=== PATIENT | female | born 1995 | race African-American/Black ===

== ENCOUNTER 2020-03-16 03:11 | Emergency (ER) | payer SELFPAY ==
[2020-03-16] MEDS ORDERED: HYDROMORPHONE HCL INJ/PF 2 MG/ML AMPULE IV ONE ×2 (04:04→05:24)
[2020-03-16] MEDS ORDERED: ONDANSETRON HCL INJ/PF 4 MG/2 ML SDV IV ONE (04:04)
[2020-03-16] MEDS ORDERED: ETOMIDATE INJ/PF 20 MG/10 ML SDV IV ONE ×2 (04:18→05:56)
--- NOTE | 2020-03-16 04:18 | ER Document Report ---
ED General - General Chief Complaint: Arm Pain Stated Complaint: LEFT SHOULDER PAIN Time Seen by Provider: 03/16/20 03:58 - HPI Context: This is a 24-year-old female presenting via EMS after falling at home and sustaining a injury to her left shoulder. Patient states that approximately 1 hour prior to arrival, patient woke up and got out of bed to use the bathroom. Patient states there were no lights on and she accidentally tripped and fell and felt immediate pain in her left shoulder. Patient states she had inability to move her left upper extremity due to pain. Patient rates the pain as a 5 out of 5 and localizes it to the left shoulder. Patient states that the pain is sharp in character. Patient states there are no alleviating symptoms and movement or touching the shoulder exacerbates her pain. Patient states that she has no prior history of a your shoulder was dislocated today. This was reduced. Please wear the sling as needed for comfort. Follow-up with orthopedic surgery if you have recurrent shoulder dislocations. You should continue to take anti- inflammatories such as ibuprofen 600 mg every 6 hours for pain. Continue to apply ice to the area is much your able. Please return immediately if you develop weakness, numbness, spreading redness from the area, or any other symptoms that are concerning to you.. Patient denies recent fever, chills, shortness of breath, history of COVID-19 infection, known exposure to persons positive for COVID-19 or exposure to persons under investigation for COVID-19. Patient denies numbness, tingling in her left digits. Associated symptoms: Other - See HPI Exacerbated by: Other - See HPI Relieved by: Other - See HPI Similar symptoms previously: No - Related Data Allergies/Adverse Reactions: No Known Allergies Allergy (Verified 03/16/20 04:25) Past Medical History - General Information source: Patient - Social History Smoking Status: Never Smoker Drug Abuse: None Family History: Reviewed & Not Pertinent Patient has suicidal ideation: No Patient has homicidal ideation: No Review of Systems - Review of Systems Constitutional: No symptoms reported EENT: No symptoms reported Cardiovascular: No symptoms reported Respiratory: No symptoms reported Gastrointestinal: No symptoms reported Genitourinary: No symptoms reported Female Genitourinary: No symptoms reported Musculoskeletal: Joint pain, Deformity Skin: No symptoms reported Hematologic/Lymphatic: No symptoms reported Neurological/Psychological: No symptoms reported -: Yes All other systems reviewed and negative Physical Exam - Vital signs Vitals: Temp Pulse Resp BP Pulse Ox 97.9 F 75 18 169/82 H 100 03/16/20 03:28 03/16/20 03:28 03/16/20 03:28 03/16/20 03:28 03/16/20 03:28 - Notes Notes: CONSTITUTIONAL [Vital signs reviewed, Patient appears uncomfortable, Alert and oriented X 3, ] HEAD [Atraumatic, Normocephalic.] EYES [Eyes are normal to inspection, No discharge from eyes, Extraocular muscles intact, Sclera are normal, Conjunctiva are normal.] ENT [External Ears normal to inspection, Nose examination normal, Posterior pharynx normal, Mouth normal to inspection.] NECK [Normal ROM, No jugular venous distention, No meningeal signs, no carotid bruit.] RESPIRATORY CHEST [Chest is nontender, Breath sounds normal, No respiratory distress.] CARDIOVASCULAR [RRR, No murmurs, Normal S1 S2, No rub, No gallop.] ABDOMEN [Abdomen is nontender, No pulsatile masses, No other masses, Bowel sounds normal, No distension, No peritoneal signs, No hernias.] BACK [There is no CVA Tenderness, There is no tenderness to palpation, Normal inspection.] UPPER EXTREMITY Left upper extremity exam is significant for anterior fullness of the deltoid on the left side. Patient's left upper extremity is slightly flexed at the elbow. Patient has cap refill less than 2 seconds in all 5 digits. Patient has intact active range of motion in all 5 digits. Sensation is grossly intact in all 5 digits. There do not appear to be any other abnormalities present on exam. LOWER EXTREMITY [Inspection normal, No cyanosis, No clubbing, No edema, No calf tenderness, 2+ femoral pulses.] NEURO [No focal motor deficits, No focal sensory deficits, Speech normal.] SKIN [Skin is warm, Skin is dry, Skin is normal color.] PSYCHIATRIC [Normal affect. ] Course - Re-evaluation Re-evalutation: 03/16/20 06:17 Plan for treatment was discussed at length with patient. Risks of conscious sedation and risks of closed reduction of shoulder dislocation discussed with patient. Patient expressed understanding of risks as explained to her and signed consent. Patient is right-hand dominant. Results of prereduction and postreduction x-rays discussed with patient. All questions were answered prior to discharge. Emergency signs and symptoms, reasons to return to the emergency department discussed with patient. Patient instructed to follow-up with Dr. Cedeño with orthopedics as she is being given a referral to see him in follow- up. - Vital Signs Vital signs: Temp Pulse Resp BP Pulse Ox 97.9 F 75 13 144/83 H 100 03/16/20 03:28 03/16/20 05:49 03/16/20 05:49 03/16/20 05:49 03/16/20 05:49 - Diagnostic Test Radiology reviewed: Reports reviewed Procedures - Conscious Sedation Conscious sedation Time started: 05:28 Time completed: 05:45 Consent obtained: Yes Indication: Closed anterior dislocation of left shoulder Last meal: Over 6 hours prior to procedure Normal healthy pt.: P1. - ASA Classification Airway Evaluation: Normal anatomy Mallampati Classification: Class 1 Used during procedure: Suction available, IV access obtained, Pulse ox on pt., cafeteria monitor on pt. Medications administered: Etomidate, Other - Dilaudid Reversal agents: None I personally performed/intraservice time: 30 min or less Complications: No - Immobilization Left Shoulder Time completed: 06:25 - Left shoulder immobilizer Pre-Proc Neuro Vasc Exam: Normal Immobilizer type: Shoulder immobilizer Performed by: PCT Post-Proc Neuro Vasc Exam: Normal Alignment checked and good: Yes - Joint Reduction/Fracture Care Left Shoulder Time completed: 05:30 - Traction countertraction Consent obtained: Yes Conscious sedation: Yes Pre-procedure NV exam: Yes - Neurovascularly intact Manipulation comment: Traction countertraction Post-procedure NV exam: Yes Post-reduction x-ray: Joint reduced Reduction attempts: 1 Complications: No Discharge - Discharge Clinical Impression: Closed anterior dislocation of left shoulder Qualifiers: Encounter type: initial encounter Qualified Code(s): S43.015A - Anterior dislocation of left humerus, initial encounter Condition: Stable Disposition: HOME, SELF-CARE Additional Instructions: Return to the Emergency Department without delay if any worse. HOME CARE INSTRUCTIONS & INFORMATION: Thank you for choosing us for your medical needs. We hope you're satisfied with the care you received. After you leave, you must properly care for your problem and, at the same time, observe its progress. Any condition can change. Some illnesses can change rapidly over hours or days. If your condition worsens, return to the Emergency Department or see your physician promptly. ABOUT YOUR X-RAYS AND EKG'S: If you had an EKG or X-rays taken, they have been read by the Emergency Physician. The X-rays and EKG's will also be read by a Radiologist or Clinical Orthoptist within 24 hours. If discrepancies are noted, you will be notified by telephone. Please be certain the ED has a correct telephone number & address where you can be reached. Also, realize that some fractures or abnormalities do not show up on initial X-rays. If your symptoms continue, see your physician. ABOUT YOUR LABORATORY TEST: If you had laboratory tests, the results have been reviewed by the Emergency Physician. Some test results (for example cultures) may not be available for several days. You will be contacted if any test result shows you need additional treatment. Please be certain the ED has a correct telephone number and address where you can be reached. ABOUT YOUR MEDICATIONS: You will receive instructions on how to take your medicine on the prescription label you receive. Additional information may be provided by the Pharmacy. If you have questions afterwards, call the ED for clarification or further instructions. Some prescribed medications may cause drowsiness. Do not perform tasks such as driving a car or operating machinery without consulting your Pharmacist. If you feel you need a refill of pain medication, your condition will need re-evaluation. Please do not call for a refill of any medication. ABOUT YOUR SIGNATURE: Signature of this document acknowledges to followin. Understanding that you received emergency treatment and that you may be released before al medical problems are known or treated. Please be certain the ED has a correct phone number & address where you can be reached. 2. Acknowledgement that you will arrange for follow-up care as recommended. 3. Authorization for the Emergency Physician to provide information to your follow-up Physician in order to maximize your care. AT ANY TIME, IF YOUR SYMPTOMS CHANGE SIGNIFICANTLY OR WORSEN OR YOU DEVELOP NEW SYMPTOMS, RETURN TO THE EMERGENCY DEPARTMENT IMMEDIATELY FOR RE-EVALUATION. OUR GOAL IS TO PROVIDE EXCELLENT MEDICAL CARE! WE HOPE THAT WE HAVE MET YOUR EXPECTATIONS DURING YOUR EMERGENCY DEPARTMENT VISIT AND THAT YOU FEEL YOU HAVE RECEIVED EXCELLENT CARE! Shoulder Dislocation You've had a shoulder dislocation. Even after the shoulder is put back in place, careful care is needed to prevent further problems. As the shoulder dislocated, injury to the joint itself occurred. This must be allowed to heal. The usual treatment is a shoulder immobilizing sling. If this is your first dislocation, it must be left in place until the doctor allows you to remove it. This is important. Ice pack the shoulder frequently. One of the most important aspects of care for a shoulder dislocation is mobility exercises and strengthening exercises. You'll start these when it's safe to start moving the shoulder joint. Be sure to keep your follow-up appointments. If you develop numbness in the arm or hand, weakness of the hand muscles, arm swelling, or arm discoloration, call the doctor or return immediately. Prescriptions: Hydrocodone/Acetaminophen [Idalou 5-325 mg Tablet] 1 tab PO Q6HP PRN #15 tablet PRN Reason: pain Referrals: MADHU CEDEÑO JR, DO [ACTIVE PROVISIONAL STAFF] - 03/16/20 (Call Dr. Cedeño's office today to arrange follow-up appointment)
--- NOTE | 2020-03-16 05:12 | RADIOLOGY REPORT (SQ) ---
Left shoulder x-ray two views on 03/16/2020 at 3:22 AM CLINICAL INDICATION: Left shoulder deformity, pain COMPARISON: None FINDINGS: There is anterior inferior dislocation of the humeral head in relation to the glenoid consistent with a anterior shoulder dislocation. No definite fracture is noted. The AC joint is well aligned. No other bony abnormality is noted. IMPRESSION: Anterior shoulder dislocation. Would recommend reimaging after reduction.
[2020-03-16] MEDS ORDERED: HYDROCODONE/ACETAMINOPHEN 5-325 MG (6 TAB/ER DISP) PO PRN (06:23)
--- NOTE | 2020-03-16 06:27 | RADIOLOGY REPORT (SQ) ---
Left shoulder x-ray two views on 03/16/2020 at 5:45 AM Clinical indications: Postreduction COMPARISON: 03/16/2020 at 3:22 AM FINDINGS: There has been successful reduction of the prior anterior shoulder dislocation. The glenohumeral joint now is well located. There are no fractures. The AC joint is well aligned. No bony abnormality is noted. IMPRESSION: Successful reduction of the prior anterior shoulder dislocation.
[2020-03-16 06:38] VITALS: BP 136/81
== END 2020-03-16 06:50 | disposition home or self-care (01) ==
LOC: ER 03:11
DX: S43.015A Anterior dislocation of left humerus, initial encounter (principal); W19.XXXA Unspecified fall, initial encounter; Y93.89 Activity, other specified; Y92.009 Unspecified place in unspecified non-institutional (private) residence as the place of occurrence of the external cause
CPT/HCPCS: 99285; 99152; 96374; 96375; 73030; 23650; J1170; J2405